=== PATIENT | male | born 1975 | race Caucasian/White ===

== ENCOUNTER 2018-06-27 04:42 | Emergency (ER) | payer MEDICAID, OTHER ==
[~2018-06-27] VITALS: Ht 182.9 cm; Wt 117.5 kg
--- NOTE | 2018-06-27 05:05 | NUR ---
Patient came in complaining of CCC, is A&O x4, BARBER and is appropriate. I will continue to monitor.
--- NOTE | 2018-06-27 05:51 | NUR ---
Patient resting comfortably on gurney, waiting to see MD.
[2018-06-27] MEDS ORDERED: AMOX-422 PO (06:25)
[2018-06-27] MEDS ORDERED: ROBCFL PO (06:25)
[2018-06-27] MEDS ORDERED: predniSONE 20 mg tablet PO ONE (06:30)
[2018-06-27] MEDS ORDERED: albuterol 2.5 MG/3 ML nebule NEB ONE (06:30)
--- NOTE | 2018-06-27 06:30 | NUR ---
PAGED FOR RESPITORY THERAPY [id number]
[2018-06-27] MEDS ORDERED: PRED20TA PO (06:31)
[2018-06-27] MEDS ORDERED: ALBU18HF2 INH (06:31)
--- NOTE | 2018-06-27 06:50 | NUR ---
RT ARRIVED FOR TREATMENT 650
[2018-06-27 07:12] VITALS: BP 134/88
== END 2018-06-27 07:13 | disposition home or self-care (01) ==
LOC: ER 04:45
DX: J20.9 Acute bronchitis, unspecified (principal); I10 Essential (primary) hypertension; F17.200 Nicotine dependence, unspecified, uncomplicated; Z88.2 Allergy status to sulfonamides; Z88.6 Allergy status to analgesic agent; Z79.899 Other long term (current) drug therapy
CPT/HCPCS: 71046; 94640; 94760; 99283; J7512

== ENCOUNTER 2018-11-30 10:51 | Emergency (ER) | payer MEDICAID, OTHER ==
[~2018-11-30] VITALS: Ht 182.9 cm; Wt 142.1 kg
[~2018-11-30 10:51] MED LIST: ALBU18HF2 INH
[2018-11-30 10:54] VITALS: BP 180/107
[2018-11-30] MEDS ORDERED: proparacaine 0.5% ophthalmic drops 15ml EACHEYE ONE (11:20)
--- NOTE | 2018-11-30 11:22 | NUR ---
left eye has some redness on conjuctiva, pt reports itching Addendum: 11/30/18 at 1123 by MARGY right eye has new redness and itching
[2018-11-30] MEDS ORDERED: CefTRIAXone 1000mg IM Kit (w/lidocaine diluent) IM ONE (11:45)
[2018-11-30] MEDS ORDERED: aspirin 81mg tab.chew PO ONE (11:45)
[2018-11-30] MEDS ORDERED: azithromycin 250mg tablet PO ONE (11:45)
[2018-11-30 12:07] LABS: BASOPHILS % (AUTO) 0.6 % (0-1); EOSINOPHILS # (AUTO) 0.1 X10'3 (0-0.9); EOSINOPHILS % (AUTO) 1.4 % (0-6); HEMATOCRIT 43.6 % (42.0-52.0); HEMOGLOBIN 15.2 g/dl (14.0-17.9); LYMPHOCYTES # (AUTO) 1.7 X10'3 (1.1-4.8); LYMPHOCYTES % (AUTO) 26.1 % (21-51); MEAN CORPUSCULAR HEMOGLOBIN 30.4 PG (27.0-31.0); MEAN CORPUSCULAR HGB CONC 34.8 g/dL (33.0-36.5); MEAN CORPUSCULAR VOLUME 87.4 FL (78-98); MEAN PLATELET VOLUME 7.6 FL (7.4-10.4); MONOCYTES # (AUTO) 1.2 X10'3 (0-0.9); MONOCYTES % (AUTO) 18.4 % (2-12); NEUTROPHILS # (AUTO) 3.4 X10'3 (1.8-7.7); NEUTROPHILS % (AUTO) 53.5 % (42-75); PLATELET COUNT 268 X10'3 (140-440); RED BLOOD COUNT 4.99 X10'6 (4.70-6.10); RED CELL DISTRIBUTION WIDTH 13.4 % (11.5-14.5); WHITE BLOOD COUNT 6.4 X10'3 (4.5-11.0)
[2018-11-30 12:20] LABS: ALANINE AMINOTRANSFERASE 43 U/L (12-78); ALBUMIN 3.6 G/DL (3.4-5.0); ALKALINE PHOSPHATASE 73 IU/L (46-116); ANION GAP 5 (8-16); ASPARTATE AMINO TRANSFERASE 24 U/L (10-37); BILIRUBIN,TOTAL 0.3 MG/DL (0.1-1.0); BLOOD UREA NITROGEN 12 MG/DL (7-18); BUN/CREATININE RATIO 12.4 (5.4-32.0); CALCIUM 8.8 MG/DL (8.5-10.1); CHLORIDE 103 MMOL/L (99-107); CREATININE 0.97 MG/DL (0.60-1.10); GLUCOSE 92 MG/DL (70-104); POTASSIUM 4.1 MMOL/L (3.5-5.1); SODIUM 138 MMOL/L (135-145); TOTAL CARBON DIOXIDE 30.4 MMOL/L (24-32); TOTAL PROTEIN 7.2 G/DL (6.4-8.2); eGFR 84 ML/MIN
[2018-11-30 12:22] LABS: TROPONIN I < 0.04 NG/ML (0.0-0.05)
[2018-11-30] MEDS ORDERED: ACET-3067 PO (12:33)
[2018-11-30] MEDS ORDERED: VIG0.5OS EACHEYE (12:33)
[2018-11-30] MEDS ORDERED: CEPH500C5 PO (12:33)
== END 2018-11-30 12:45 | disposition home or self-care (01) ==
LOC: ER 10:51
DX: H10.9 Unspecified conjunctivitis (principal); R07.89 Other chest pain; I10 Essential (primary) hypertension; Z98.890 Other specified postprocedural states; Z88.2 Allergy status to sulfonamides; Z88.8 Allergy status to other drugs, medicaments and biological substances; Z79.899 Other long term (current) drug therapy
CPT/HCPCS: 36415; 71045; 80053; 84484; 85025; 93005; 96372; 99284; J0696

== ENCOUNTER 2019-05-03 10:03 | Emergency (ER) | payer MEDICAID ==
[~2019-05-03] VITALS: Ht 182.9 cm; Wt 149.3 kg
[~2019-05-03 10:03] MED LIST changes: +DIVA500T2 PO; +PRAZ2CAP2 PO
[2019-05-03 10:29] VITALS: BP 166/113
[2019-05-03] MEDS ORDERED: PENI500T2 PO (11:35)
== END 2019-05-03 12:08 | disposition home or self-care (01) ==
LOC: ER 10:04
DX: K04.7 Periapical abscess without sinus (principal); K02.9 Dental caries, unspecified; I10 Essential (primary) hypertension; Z98.49 Cataract extraction status, unspecified eye; Z88.6 Allergy status to analgesic agent; Z88.2 Allergy status to sulfonamides; Z79.899 Other long term (current) drug therapy
CPT/HCPCS: 99283

== ENCOUNTER 2019-06-14 20:12 | Emergency (ER) | payer MEDICAID ==
[~2019-06-14] VITALS: Ht 182.9 cm; Wt 145.5 kg
[2019-06-14 20:17] VITALS: BP 131/85
== END 2019-06-14 22:20 | disposition home or self-care (01) ==
LOC: ER 20:12
DX: S06.0X0A Concussion without loss of consciousness, initial encounter (principal); I10 Essential (primary) hypertension; F17.200 Nicotine dependence, unspecified, uncomplicated; Z98.890 Other specified postprocedural states; Z88.6 Allergy status to analgesic agent; Z88.2 Allergy status to sulfonamides; Z79.899 Other long term (current) drug therapy; Y04.2XXA Assault by strike against or bumped into by another person, initial encounter; Y93.89 Activity, other specified; Y92.89 Other specified places as the place of occurrence of the external cause; Y99.8 Other external cause status
CPT/HCPCS: 99281